=== PATIENT | male | born 1980 | race American Indian/Alaskan Native ===

== ENCOUNTER 2017-06-15 19:27 | Emergency (ER) | payer SELFPAY ==
[2017-06-16] MEDS ORDERED: DECADRON IM ONE (00:16)
[2017-06-16] MEDS ORDERED: TORADOL IM ONE (00:16)
[2017-06-16] MEDS ORDERED: NORCO 10/325 PO ONE (00:17)
--- NOTE | 2017-06-16 00:32 | Emergency Department Report ---
ED ENT HPI - General Chief complaint: Sore Throat Stated complaint: SOB Time Seen by Provider: 06/16/17 00:16 Source: patient Mode of arrival: Ambulatory Limitations: No Limitations - History of Present Illness Initial comments: 36 yo male with no PMHx presenting to ED complaining of sorethroat. Onset was 2 days prior, no inciting factors, pains is constant, non radiating, no relaxing factors, worse with swallowing. Pt admits yesterday he had a fever of 101F. Pt states it hurts to swallow however he can swallow and he can tolerating secretions. MD complaint: sore throat -: Gradual, days(s) (2) Location: throat Severity: moderate Severity scale (0 -10): 6 Quality: aching Consistency: constant Worsens with: none Associated Symptoms: fever, pain with swallowing, sore throat. denies: cough, gum swelling, toothache, tinnitus, hearing loss, discharge from ear - Related Data Previous Rx's Medication Instructions Recorded Last Taken Type Azithromycin [Zithromax Z-JODI] 250 mg PO DAILY #6 tablet 06/16/17 Unknown Rx HYDROcodone/APAP 5-325 [[place] 1 each PO Q6HR PRN #15 tablet 06/16/17 Unknown Rx 5/325] Ibuprofen [Motrin 800 MG tab] 800 mg PO Q8HR PRN #20 tablet 06/16/17 Unknown Rx Allergies Allergy/AdvReac Type Severity Reaction Status Date / Time amoxicillin Allergy Hives Verified 06/15/17 19:54 peanut Allergy Hives Verified 06/15/17 19:54 ED Dental HPI - General Chief complaint: Sore Throat Stated complaint: SOB Time Seen by Provider: 06/16/17 00:16 Source: patient Mode of arrival: Ambulatory Limitations: No Limitations - Related Data Previous Rx's Medication Instructions Recorded Last Taken Type Azithromycin [Zithromax Z-JODI] 250 mg PO DAILY #6 tablet 06/16/17 Unknown Rx HYDROcodone/APAP 5-325 [[place] 1 each PO Q6HR PRN #15 tablet 06/16/17 Unknown Rx 5/325] Ibuprofen [Motrin 800 MG tab] 800 mg PO Q8HR PRN #20 tablet 06/16/17 Unknown Rx Allergies Allergy/AdvReac Type Severity Reaction Status Date / Time amoxicillin Allergy Hives Verified 06/15/17 19:54 peanut Allergy Hives Verified 06/15/17 19:54 ED Review of Systems ROS: Stated complaint: SOB Other details as noted in HPI Comment: All other systems reviewed and negative ENT: throat pain. denies: dental pain, hearing loss, epistaxis ED Past Medical Hx - Past Medical History Hx HIV: Yes - Surgical History Past Surgical History?: No - Social History Smoking Status: Current Some Day Smoker Substance Use Type: Alcohol - Medications Home Medications: Home Medications Medication Instructions Recorded Confirmed Last Taken Type Azithromycin [Zithromax Z-JODI] 250 mg PO DAILY #6 tablet 06/16/17 Unknown Rx HYDROcodone/APAP 5-325 [[place] 1 each PO Q6HR PRN #15 tablet 06/16/17 Unknown Rx 5/325] Ibuprofen [Motrin 800 MG tab] 800 mg PO Q8HR PRN #20 tablet 06/16/17 Unknown Rx ED Physical Exam - General Limitations: No Limitations General appearance: alert, in no apparent distress - Head Head exam: Present: atraumatic, normocephalic - Eye Eye exam: Present: normal appearance. Absent: PERRL, EOMI - ENT ENT exam: Present: normal exam, normal orophraynx, mucous membranes moist, other (pt has normal oropharynx, no tonsilar eryhtema, no tonsilar exudate, uvula midline, no oropharyngeal edema). Absent: mucous membranes dry - Neck Neck exam: Present: normal inspection - Respiratory Respiratory exam: Present: normal lung sounds bilaterally. Absent: respiratory distress - Cardiovascular Cardiovascular Exam: Present: regular rate, normal rhythm. Absent: systolic murmur, diastolic murmur, rubs, gallop - GI/Abdominal GI/Abdominal exam: Present: soft, normal bowel sounds - Rectal Rectal exam: Present: deferred - Extremities Exam Extremities exam: Present: normal inspection - Back Exam Back exam: Present: normal inspection - Neurological Exam Neurological exam: Present: alert, oriented X3 - Psychiatric Psychiatric exam: Present: normal affect, normal mood - Skin Skin exam: Present: warm, dry, intact, normal color. Absent: rash ED Course Vital Signs 06/15/17 06/16/17 19:54 00:48 Temperature 98.6 F Pulse Rate 74 Respiratory 20 18 Rate Blood Pressure 106/82 O2 Sat by Pulse 99 Oximetry - Reevaluation(s) Reevaluation #1: 06/16/17 01:26 Patient states symptoms have improved after pain meds given any stable discharge home. He is well appearing, tolerating by mouth juice in the ED. ED Medical Decision Making - Medical Decision Making 36-year-old male presenting to the ED complaining of sore throat. This likely that patient's viral pharyngitis. Given he has no tonsilar exudates or enlargement, I have low suspicion for tonsillitis. Given he has full ROM of his neck and no change of voice- I have no suspicion for retropharyngeal abscess. I discusses this pt that his symptoms are likely viral however he is requesting antibx. I will start him on azithromycin. He agrees he is stable to dc home and follow up with PCP. He verbalized understanding of return precautions. - Differential Diagnosis retropharyngeal abcess, tonsillitis, uvulitis Critical Care Time: No Critical care attestation.: If time is entered above; I have spent that time in minutes in the direct care of this critically ill patient, excluding procedure time. ED Disposition Clinical Impression: Pharyngitis Disposition: DC-01 TO HOME OR SELFCARE Is pt being admited?: No Does the pt Need Aspirin: No Condition: Stable Instructions: Pharyngitis (ED) Prescriptions: Azithromycin [Zithromax Z-JODI] 250 mg PO DAILY #6 tablet HYDROcodone/APAP 5-325 [[place] 5/325] 1 each PO Q6HR PRN #15 tablet PRN Reason: Pain , Severe (7-10) Ibuprofen [Motrin 800 MG tab] 800 mg PO Q8HR PRN #20 tablet PRN Reason: Pain , Severe (7-10) Referrals: PRIMARY CARE,MD [Primary Care Provider] - 3-5 Days Forms: Work/School Release Form(ED)
[2017-06-16 06:50] VITALS: BP 102/69
== END 2017-06-16 01:38 | disposition home or self-care (01) ==
LOC: ED 19:27
DX: J02.9 Acute pharyngitis, unspecified (principal); F17.210 Nicotine dependence, cigarettes, uncomplicated; Z88.1 Allergy status to other antibiotic agents; Z91.010 Allergy to peanuts
CPT/HCPCS: 87116; 87430; 96372; 99282; J1100; J1885